=== PATIENT | male | born 1965 | race Caucasian/White ===

== ENCOUNTER 2019-01-07 02:38 | Emergency (ER) | payer OTHER, MEDICAID, SELFPAY ==
--- NOTE | 2019-01-07 02:51 | ED.GENADULT ---
HPI - General Adult General Chief complaint: Psychiatric Symptoms Time Seen by Provider: 01/07/19 02:50 Source: patient Mode of arrival: EMS Limitations: other (Intoxication) History of Present Illness HPI narrative: 53-year-old male who is brought in by EMS. It is reported by EMS that he was staying at the [facility] when he was kicked out unsure as the exact circumstances however EMS stated that it was because he was acting very agitated. EMS reports that the police were on scene. They report that he told the police if he could stay at the [facility] he would go to the hospital that is why he was brought here to the ER. Patient is moving all over the room. Initially stated that he was not high. He did state that he has done drugs in the past with the last time 3 days ago. Later on during the interview he did stated that he was high. Patient not aggressive. Related Data Allergies Allergy/AdvReac Type Severity Reaction Status Date / Time No Known Drug Allergies Allergy Verified 01/07/19 03:17 Review of Systems Review of Systems Patient would not answer any review of systems questions FOR[facility], [facility] Medical History Medical history unknown (Acute) Unknown family medical history (Acute) Social History housing: homeless Social History housing: homeless Exam Initial Vital Signs Initial Vital Signs: Vital Signs Pulse Rate 106 H 01/07/19 02:55 Pulse Oximetry 96 01/07/19 02:55 Const General: cooperative (Somewhat cooperative), well developed and well groomed Orientation: alert, awake, oriented to person and oriented to place HENOK Head: normal to inspection and normocephalic Resp Effort & Inspection: normal respiratory effort Cardio Rate: tachycardic Skin Lesions: no lesions Rashes: no rashes Neuro General: alert and awake Speech: other (Pressured speech) Motor: muscle tone normal throughout Extrem General: normal to inspection Psych Appearance: grossly normal and well kempt Speech and Movement: pressured speech Mood: irritable mood Affect: animated and No hostile Attitude: cooperative Thought Process: flight of ideas Course Orders Ordered: Discontinued Medications Lorazepam (Ativan) 1 mg PO NOW ONE Stop: 01/07/19 02:51 Last Admin: 01/07/19 03:01 Dose: 1 mg Vital Signs - 8 hr 01/07/19 02:55 01/07/19 06:42 Temperature 98.0 F Pulse Rate 106 H 78 Respiratory Rate 15 Blood Pressure [Right Arm] 116/67 Pulse Oximetry 96 99 Medical Decision Making MDM Narrative Medical decision making narrative: Patient admitted to being high. This did fit his clinical scenario. He did calm down and did sleep for a while. He had no signs of trauma. Will discharge home. In my opinion patient had capacity to make decisions at the time of discharge. Discharge Plan Departure Patient Disposition: Home Clinical Impression: Intoxication by drug Qualifiers: Complication of substance-induced condition: uncomplicated Qualified Code(s): F19.920 - Other psychoactive substance use, unspecified with intoxication, uncomplicated Instructions: DI for Drug Abuse and Drug Addiction Activity Restrictions/Additional Instructions: I recommend that you may contact with the primary care doctor in the area. No driving for the next 24 hr or in the future if you partake in intoxicating substances. You can return to the emergency department at any point for new or worsening symptoms
[2019-01-07 02:55] VITALS: PULSE 106; O2SAT 96
--- NOTE | 2019-01-07 03:00 | PC.NURSE ---
Pt belongings placed in Locked cupboard pt aware.
[2019-01-07] MEDS: LORazepam 1 MG TABLET PO (03:01)
[2019-01-07 06:42] VITALS: BP 116/67; PULSE 78; RESP 15; TEMP 36.7; O2SAT 99
== END 2019-01-07 07:30 | disposition home or self-care (01) ==
PROVIDERS: Emergency Provider Emergency Medicine
DX: F19.920 Other psychoactive substance use, unspecified with intoxication, uncomplicated (principal)
CPT/HCPCS: 99282; 99283